=== PATIENT | female | born 1980 | race Caucasian/White ===

== ENCOUNTER 2022-03-29 08:45 | Emergency (ER) | payer BC ==
[~2022-03-29] VITALS: Ht 162.6 cm; Wt 67.1 kg
[2022-03-29] MEDS ORDERED: ACETAMINOPHEN ES 500 MG TABLET PO ONE (09:00)
[2022-03-29] MEDS ORDERED: IV NORMAL SALINE 1000 ML BAG IV ONE (09:00)
[2022-03-29 09:09] LABS: HEMATOCRIT 41.2 % (31.2-41.9); MEAN CORPUSCULAR HEMOGLOBIN 31.9 uug (24.7-32.8); MEAN CORPUSCULAR VOLUME 93.3 fL (75.5-95.3); PLATELET COUNT (AUTO) 358 K/uL (179-408)
[2022-03-29 09:16] LABS: CREATININE 0.8 mg/dL (0.6-1.3); POTASSIUM 4.1 mmol/L (3.5-5.1)
--- NOTE | 2022-03-29 09:20 | NUR ---
Pt signed Consent for IV contrast, placed in the chart.
--- NOTE | 2022-03-29 09:20 | NUR ---
Pt signed waiver, and per server support technician request, Dr Bryce hodge.
[2022-03-29 09:22] LABS: BILIRUBIN,DIRECT 0.1 mg/dL (0.0-0.2); BILIRUBIN,TOTAL 0.2 mg/dL (0.2-1.0)
[2022-03-29] MEDS ORDERED: ONDANSETRON 4 MG/2 ML VIAL ONE (09:24)
[2022-03-29] MEDS ORDERED: IV NORMAL SALINE 250 ML IV ONE (09:26)
[2022-03-29] MEDS ORDERED: IOHEXOL 300MG/ML 100 ML INFUS..BTL ONE (09:26)
[2022-03-29] MEDS ORDERED: SWABABLE VALVE TRANSFER SET EA MC ONE (09:26)
[2022-03-29] MEDS ORDERED: ONDANSETRON 4 MG/2 ML VIAL IV ONE (09:30)
--- NOTE | 2022-03-29 09:34 | NUR ---
Pt out of ER for Ct scan.
--- NOTE | 2022-03-29 10:20 | NUR ---
Pt Back from Ct scan and c/o migraines headache. Dr aguillon made aware.
[2022-03-29] MEDS ORDERED: IBUP-1955 PO (10:42)
[2022-03-29] MEDS ORDERED: CYCL5TAB PO (10:42)
[2022-03-29] MEDS ORDERED: KETOROLAC TROMETHAMINE 15 MG INJ IVP ONE (10:45)
[2022-03-29] MEDS ORDERED: diphenhydrAMINE 50 MG/1 ML VIAL IV ONE (10:45)
[2022-03-29] MEDS ORDERED: diphenhydrAMINE 50 MG/1 ML VIAL ONE (10:45)
[2022-03-29] MEDS ORDERED: METOCLOPRAMIDE HCL 10 MG/2 ML VIAL IV ONE (10:45)
[2022-03-29] MEDS ORDERED: METOCLOPRAMIDE HCL 10 MG/2 ML VIAL ONE (10:46)
[2022-03-29] MEDS ORDERED: KETOROLAC TROMETHAMINE 15 MG INJ ONE (10:46)
[2022-03-29 11:21] VITALS: BP 137/78
--- NOTE | 2022-03-29 11:22 | NUR ---
IV removed. Catheter intact and site benign. Pressure and 4x4 gauze applied to site. No bleeding noted.
--- NOTE | 2022-03-29 11:38 | NUR ---
Pt discharged to home in stable condition. Written and verbal after care instructions given. Patient verbalizes understanding of instructions. Stressed follow up or return to ER for worsening s/s.
== END 2022-03-29 11:45 | disposition home or self-care (01) ==
LOC: ER 08:45
DX: S16.1XXA Strain of muscle, fascia and tendon at neck level, initial encounter (principal); T85.42XA Displacement of breast prosthesis and implant, initial encounter; V49.40XA Driver injured in collision with unspecified motor vehicles in traffic accident, initial encounter; Y92.411 Interstate highway as the place of occurrence of the external cause; R07.89 Other chest pain; R10.9 Unspecified abdominal pain; F43.9 Reaction to severe stress, unspecified
CPT/HCPCS: 99285; 70450; 96374; 96375; 96361; 80076; 80048; 85025; 85730; 36415; 71260; 72125; 74177; J1200; J1885; J2765; J2405; Q9967; J7040; A4663